=== PATIENT | male | born 1945 ===

== ENCOUNTER 2022-12-15 17:37 | Outpatient (CLI) | payer OTHER | END 2022-12-15 17:38 | disposition critical access hospital (66) | LOC: EMS 17:37 | DX: I46.9 Cardiac arrest, cause unspecified (principal) | CPT/HCPCS: A0425; A0433 ==

== ENCOUNTER 2022-12-15 17:54 | Emergency (ER) | payer OTHER ==
[2022-12-15 18:11] LABS: BASOPHILS % (AUTO) 0.5 %; EOSINOPHILS % (AUTO) 1.6 %; HCT - HEMATOCRIT 44.1 % (42.0-52.0); HGB - HEMOGLOBIN 14.2 g/dL (14.0-18.0); MEAN CORPUSCULAR HEMOGLOBIN 31.8 pg (27.0-31.0); MEAN CORPUSCULAR HGB CONC 32.2 g/dL (32.0-36.0); MEAN CORPUSCULAR VOLUME 98.9 fL (80.0-94.0); MEAN PLATELET VOLUME 10.9 fL (7.4-11.4); MONOCYTES % (AUTO) 5.9 %; NEUTROPHILS % (AUTO) 39.1 %; PLT - PLATELET COUNT 204 10^3/uL (130-450); RED BLOOD COUNT 4.46 10^6/uL (4.70-6.10); RED CELL DISTRIBUTION WIDTH 13.6 % (12.0-15.0)
[2022-12-15 18:12] LABS: SLIDE REVIEW? Indicated
[2022-12-15 18:13] LABS: ABNORMAL LYMPHS % (MANUAL) 0 %
[2022-12-15 18:26] LABS: INR 1.1 (0.8-1.2)
[2022-12-15 18:36] LABS: ALBUMIN 3.7 g/dL (3.2-5.5)
--- NOTE | 2022-12-15 18:38 | ED Physician Documentation ---
PD HPI CPR - Stated complaint Stated Complaint: ROSC - Chief complaint Chief Complaint: Critical Care - History obtained from History obtained from: Family (), EMS (They report asystole on their first arrival with ACLS interventions producing V-fib and then a organized rhythm with faint pulses and blood pressure 70s. This lasted for several minutes and on route went to pulseless again. Arrives to the ER with CPR in progress. Prehospi uche time was 40 min UTILIZATION REVIEWER.) - History of Present Illness Timing - onset: How many minutes ago (40-50 - EMS reports a 40-minute prehospital downtime from their arrival. Likely 5 to 10 minutes onset of the arrest prior to their arrival.), Today Timing - onset during: Light activity (The patient's states the the patient had been active and actually fairly physical earlier in the day having unloaded material from his truck. He then was in the house in the next room and she heard snoring type breathing. Went to the room and found him unresponsive with unusual respirations.) Preceding symptoms: Unknown, None (his says he was not complaining of any symptoms earlier today nor shortly prior to the arrest.) Contributing factors: CAD Recently seen: Not recently seen (His states he was seen by his learning coordinator about a month ago and resumed on carvedilol. No other recent appointments nor med changes) Fall: No fall Bystander CPR: Bystander CPR EMS findings: Pulseless, Asystole Treatment UTILIZATION REVIEWER: CPR, Defibrillated (rhythm changed from asystole to vfib and defibrillated to organized rhyth after 3 shocks. Then started on Dopamine. Went to agonal/PEA enroute.), BVM, Intubated, Epi Advanced directive: Full code Review of Systems Unable to obtain: Unresponsive, Other (some info subsequently from his . No recent/current illness nor symptoms earlier in the day.) PD PAST MEDICAL HISTORY - Past Medical History Cardiovascular: Hypertension, High cholesterol, Coronary artery disease - Present Medications Home Medications: Ambulatory Orders Medication Instructions Recorded Confirmed Folic Acid 1 mg PO DAILY 12/15/22 12/15/22 Lisinopril [Zestril] 40 mg PO DAILY 12/15/22 12/15/22 Methotrexate [Methotrexate Sodium] 25 mg PO ONCE 12/15/22 12/15/22 Triamterene/Hydrochlorothiazid 1 each PO DAILY 12/15/22 12/15/22 [Triamterene-Hctz 37.5-25 mg Cp] allopurinoL [Allopurinol] 300 mg PO DAILY 12/15/22 12/15/22 carvediloL [Coreg] 12.5 mg PO BID 12/15/22 12/15/22 - Allergies Allergies/Adverse Reactions: Allergies Allergy/AdvReac Type Severity Reaction Status Date / Time No Known Drug Allergies Allergy Verified 12/15/22 18:06 PD ED PE NORMAL - Vitals Vital signs reviewed: Yes (fCPR with femoral pulses from compressions. ETCO2 40.) - Respiratory Respiratory: Other (intubated with bagged respirations. ) - Derm Derm: No: Normal color (pallor) - Extremities Extremities: Other (1+ edema in both legs. ) - Neuro Neuro: Other (no spontaneous resp effort. No movements. Bedside U/S on first pulse check showed poor/minimal contractility.) Results - Vitals Vitals: Vital Signs - 24 hr 12/15/22 12/15/22 12/15/22 17:56 18:00 18:04 Temperature 34.8 C L Heart Rate 90 104 H 104 H Respiratory 39 H 21 21 Rate Blood Pressure 154/100 H 105/76 109/81 H O2 Saturation 99 65 L 83 L 12/15/22 12/15/22 12/15/22 18:06 18:08 18:10 Temperature Heart Rate 101 H 128 H 118 H Respiratory 21 21 31 H Rate Blood Pressure 110/77 109/49 L 138/103 H O2 Saturation 82 L 82 L 84 L 12/15/22 12/15/22 12/15/22 18:14 18:16 18:18 Temperature Heart Rate 145 H 164 H 141 H Respiratory 26 H 26 H Rate Blood Pressure 174/128 H 194/164 H 102/13 L O2 Saturation 81 L 91 L 89 L 12/15/22 18:21 Temperature Heart Rate 0 L Respiratory Rate Blood Pressure O2 Saturation - Labs Labs: Laboratory Tests 12/15/22 12/15/22 12/15/22 17:59 17:59 17:59 WBC 15.0 H RBC 4.46 L Hgb 14.2 Hct 44.1 MCV 98.9 H MCH 31.8 H MCHC 32.2 RDW 13.6 Plt Count 204 MPV 10.9 Neut # (Auto) Not Reportable Lymph # (Auto) Not Reportable [place] # (Auto) Not Reportable Eos # (Auto) Not Reportable Baso # (Auto) Not Reportable Absolute Nucleated RBC Not Reportable Total Counted 100 Band Neuts % (Manual) 7 Reactive Lymphs % (Man) 5 Abnorm Lymph % (Manual) 0 Metamyelocytes % 6 H Nucleated RBC % Not Reportable Neutrophils # (Manual) 5.4 Lymphocytes # (Manual) 7.5 H Monocytes # (Manual) 1.1 H Eosinophils # (Manual) 0.2 Basophils # (Manual) 0.0 Nucleated RBCs 1 Differential Comment MANUAL DIFFERENTIAL Manual Slide Review Indicated Platelet Estimate NORMAL (130-450,000) Platelet Morphology NORMAL APPEARANCE RBC Morph Micro Appear NORMAL APPEARANCE PT 12.0 INR 1.1 Sodium 140 Potassium 3.6 Chloride 103 Carbon Dioxide 21 Anion Gap 16.0 H BUN 29 H Creatinine 1.7 H Estimated GFR (MDRD) 39 L Glucose 307 H POC Whole Bld Glucose Lactic Acid Calcium 8.8 Total Bilirubin 0.3 AST 59 H ALT 63 H Alkaline Phosphatase 84 Total Protein 6.3 L Albumin 3.7 Globulin 2.6 Albumin/Globulin Ratio 1.4 Lipase 62 12/15/22 12/15/22 17:59 18:06 WBC RBC Hgb Hct MCV MCH MCHC RDW Plt Count MPV Neut # (Auto) Lymph # (Auto) [place] # (Auto) Eos # (Auto) Baso # (Auto) Absolute Nucleated RBC Total Counted Band Neuts % (Manual) Reactive Lymphs % (Man) Abnorm Lymph % (Manual) Metamyelocytes % Nucleated RBC % Neutrophils # (Manual) Lymphocytes # (Manual) Monocytes # (Manual) Eosinophils # (Manual) Basophils # (Manual) Nucleated RBCs Differential Comment Manual Slide Review Platelet Estimate Platelet Morphology RBC Morph Micro Appear PT INR Sodium Potassium Chloride Carbon Dioxide Anion Gap BUN Creatinine Estimated GFR (MDRD) Glucose POC Whole Bld Glucose 183 H Lactic Acid > 10.0 H* Calcium Total Bilirubin AST ALT Alkaline Phosphatase Total Protein Albumin Globulin Albumin/Globulin Ratio Lipase - Rads (name of study) chest xray Relevant Findings:: Prelim report reviewed, EMP independent interpretation of test (ETT considerably above the josey.) PD Medical Decision Making - ED course Complexity details: considered differential (abrupt cardiac arrest and was reportedly active/doing okay earlier in the day. ), d/w family ED course: Patient had reported ROSC in the field by EMS. Arrives with CPR in progress though, with loss of pulses. On first pulse check after arrival, I did bedside US and saw slight heart contractlons. NO efusion, no apparent PTX. The patient's rhythm went from NSR with poor pulses, to Vfib despite ventilations, medications. Into v-fib on pulse check. Doses of epi given, as weell as sodium bicarb, and the Vfib has some varying amplitude, so gave Mag sulfate 2 gm IV as well. His rhythm degraded to agonal rhythm despite further medications. Had then been 40 minutes prehospital and 30 min ER, so I felt that he was not now surviavable. Bedside US again at pulse check time showed no heart movement. Rescuscitative efforts then discontinued. - Critical Care Time(min): 30 Time Includes: Direct patient care, Reassess patient, Coordinate care Departure - Departure Disposition: 20 Clinical Impression: Ventricular fibrillation, Cardiac arrest Condition: Stable Forms: PCP List Discharge Date/Time: 12/15/22 19:55
[2022-12-15 18:40] LABS: BAND NEUTROPHILS % (MANUAL) 7 %; EOSINOPHILS # (MANUAL) 0.2 10^3/uL (0-0.7); LYMPHOCYTES # (MANUAL) 7.5 10^3/uL (1.5-3.5); LYMPHOCYTES % (MANUAL) 45 %; METAMYELOCYTES % (MANUAL) 6 %; MONOCYTES # (MANUAL) 1.1 10^3/uL (0.0-1.0); NEUTROPHILS # (MANUAL) 5.4 10^3/uL (1.5-6.6); NUCLEATED RBC (MANUAL) 1 %; PLATELET ESTIMATE, MANUAL NORMAL (130-450,000) (NORMAL); PLATELET MORPHOLOGY NORMAL APPEARANCE (NORMAL); RBC MORPHOLOGY (MULTIPLE) NORMAL APPEARANCE (NORMAL); REACTIVE LYMPHS % (MANUAL) 5 %
--- NOTE | 2022-12-15 18:40 | XRAY Report ---
PROCEDURE: Chest for Line Placement INDICATIONS: Short of breath, intubation TECHNIQUE: One view of the chest was acquired. COMPARISON: None. FINDINGS: Surgical changes and devices: Endotracheal tube tip is 11.7 cm by the josey. Consider advancement. Lungs and pleura: Cardiomegaly, moderate vascular congestion and bilateral pulmonary infiltrates lik rebekah reflecting pulmonary edema. No pneumothorax. Mediastinum: As above Bones and chest wall: No suspicious bony lesions. Overlying soft tissues appear unremarkable. IMPRESSION: Endotracheal tube tip 11.7 cm below the josey. Consider advancement. Cardiomegaly, moderate vascular congestion bilateral pulmonary infiltrates, likely pulmonary edema Reviewed by: Kameron Krishnamurthy MD on 12/15/2022 5:39 PM AKHIREN Approved by: Kameron Krishnamurthy MD on 12/15/2022 5:39 PM AKHIREN Station ID: [id number]
[2022-12-15 18:41] LABS: DIFFERENTIAL COMMENT MANUAL DIFFERENTIAL
[2022-12-15 18:51] LABS: ALBUMIN/GLOBULIN RATIO 1.4 (1.0-2.2); BILIRUBIN,TOTAL 0.3 mg/dL (0.2-1.0); CALCIUM 8.8 mg/dL (8.5-10.3); CREATININE 1.7 mg/dL (0.6-1.3); POTASSIUM 3.6 mmol/L (3.5-4.5); TOTAL PROTEIN 6.3 g/dL (6.4-8.9)
[2022-12-15 19:32] VITALS: BP 102/13; O2SAT 89
== END 2022-12-15 19:55 | disposition expired ==
LOC: ED 17:54
DX: I49.01 Ventricular fibrillation (principal); I46.9 Cardiac arrest, cause unspecified
CPT/HCPCS: 36415; 80053; 83605; 83690; 85025; 85610; 92950; 99291